=== PATIENT | male | born 1985 | race Caucasian/White ===

== ENCOUNTER 2019-11-17 17:05 | Emergency (ER) | payer MEDICAID, SELFPAY ==
[2019-11-17 17:09] VITALS: BP 135/72; PULSE 92; RESP 18; TEMP 36.4; O2SAT 96
--- NOTE | 2019-11-17 17:27 | W.ED.GENAD ---
Discharge Plan Disposition Patient Disposition: HOME Condition: Stable Discharge Details Chief Complaint: Cellulitis Clinical Impression: Cellulitis of left foot Primary Care Provider: Cheyanne Mcpherson ED Provider: Kash Davila Home Meds and New Rx's Prescriptions: New cephalexin [Keflex] 500 mg capsule 500 mg PO QID Qty: 39 RF: 0 sulfamethoxazole-trimethoprim [Bactrim DS] 800-160 mg tablet 1 tab PO BID Qty: 19 RF: 0 Continued ibuprofen 200 MG tablet 800 mg PO PRN PRNRF: 0 methadone 10 mg/mL Concentrate 80 mg PO DAILY RF: 0 Discharge Instructions Instructions: Cellulitis (ED) Additional Instructions: Please take full course of antibiotics as prescribed. Please take ibuprofen over the counter. Take 600mg by mouth every 6 hours as needed for pain. Please contact your primary care physician to arrange follow-up. Return to the ER for any worsening or new concerning symptoms. Referrals: Cheyanne Mcpherson PA [Primary Care Provider] - Medical Decision Making 33-year-old male here with cellulitis of his left foot. Patient has had recent bug bite. Border of erythema was marked. Patient to be started on Keflex and Bactrim. Initial dose provided here. Considered new onset diabetes. Fingerstick is normal. Plan for outpatient follow-up discussed with patient. Patient understands importance of timely follow-up and to return for any worsening or new concerning symptoms. Of note, tetanus is up-to-date. Patient states he has had within the last 10 years. HPI General Mode of arrival: ambulatory. Date/Time Provider Initiated Documentation: 11/17/19 17:17. Limitations to Documentation: no limitations. Information obtained by: patient. HPI Narrative: 33-year-old male presents with chief complaint of left foot inflammation. Patient notes inflammation over the past 3 days. Worse since yesterday with increased pain with ambulation. Pain now moderate. He has associated swelling and redness of the dorsal foot. He notes that he thinks he was bit by a horse fly in the area a few days ago. He does note that he stepped on a rock about a week ago and it did hurt his heel but he does not think he cut his heel. No associated fever. Otherwise feeling well with no dizziness Related Data Home Medications Medication Instructions Recorded Confirmed ibuprofen 800 mg PO PRN PRN 03/16/14 11/17/19 cephalexin [Keflex] 500 mg PO QID #39 cap 11/17/19 methadone 80 mg PO DAILY 11/17/19 11/17/19 sulfamethoxazole-trimethoprim 1 tab PO BID #19 tab 11/17/19 [Bactrim DS] Previous Rx's Medication Instructions Recorded cephalexin [Keflex] 500 mg PO QID #39 cap 11/17/19 sulfamethoxazole-trimethoprim 1 tab PO BID #19 tab 11/17/19 [Bactrim DS] Allergies Allergy/AdvReac Type Severity Reaction Status Date / Time No Known Allergies Allergy Unverified 11/17/19 17:13 General Stated Complaint: Cellulitis HILDA: 3 Review of Systems All systems reviewed & are unremarkable except as noted in HPI and below Constitutional Constitutional: Denies fever(s) Integumentary/Breasts Skin/Breast: Reports as per HPI [facility] Medical History Opioid abuse, in remission (Acute) Social History Smoking/Tobacco Use Status: Current every day Tobacco Type: cigarettes Years smoked: 26 Alcohol Intake: current Alcohol Intake frequency: holidays/special occasions only Drug use: Current Sobriety Do you feel safe at home: Yes Do you feel safe in your relationship?: Yes Exam Const General: cooperative and no acute distress HENMT Mouth: moist mucous membranes Eyes Conjunctivae: normal conjunctivae Sclera: normal sclerae Neck Neck: trachea midline and supple Resp Auscultation: clear to auscultation bilaterally, no rales, no rhonchi and no wheezes Cardio Jugular venous pressure: no JVD Rate: regular rate and not tachycardic Rhythm: regular rhythm Heart Sounds: no murmurs Pulses: dorsalis pedis present on the left 2+ Skin Rashes: rashes noted (Erythema dorsal left foot) Neuro General: patient alert, patient awake and tone normal Extrem Left lower extremity: foot Details: tenderness Location: of the dorsal foot; not of the calcaneus, warmth, edema Location: of the dorsal foot, vascular exam Details: dorsalis pedis pulse present and motor-sensory exam Details: light-touch normal; no lacerations Psych Appearance: grossly normal Mental Status: mental status grossly normal Course Vital Signs Vital signs: Vital Signs Temperature 36.4 C L 08/15/20 17:09 Pulse 92 H 11/17/19 17:09 Respiratory Rate 18 11/17/19 17:09 Blood Pressure 135/72 11/17/19 17:09 Pulse Oximetry 96 11/17/19 17:09 Temperature 36.4 C L 11/17/19 17:09 Temperature Source Skin 11/17/19 17:09 Pulse 92 H 11/17/19 17:09 Respiratory Rate 18 11/17/19 17:09 Respiratory Effort Non-Labored 11/17/19 17:14 Blood Pressure 135/72 11/17/19 17:09 Blood Pressure Position Sitting 11/17/19 17:09 Pulse Oximetry 96 11/17/19 17:09 Oxygen Delivery Method Room Air 11/17/19 17:09 Oxygen Flow Rate 0 11/17/19 17:09 Pain Level 2 11/17/19 17:09
[2019-11-17] MEDS: Cephalexin 500 MG CAP PO (17:32)
[2019-11-17] MEDS: Sulfameth/Trimeth DS TAB 1 TAB PO (17:32)
== END 2019-11-17 17:40 | disposition home or self-care (01) ==
LOC: ER 17:53
PROVIDERS: Emergency Provider Student in an Organized Health Care Education/Training Program
DX: L03.116 Cellulitis of left lower limb (principal); S90.862A Insect bite (nonvenomous), left foot, initial encounter; W57.XXXA Bitten or stung by nonvenomous insect and other nonvenomous arthropods, initial encounter
CPT/HCPCS: 99283

== ENCOUNTER 2021-09-18 20:37 | Emergency (ER) | payer MEDICAID, SELFPAY ==
[2021-09-18 20:46] VITALS: BP 138/69; PULSE 125; RESP 20; TEMP 37; O2SAT 97
--- NOTE | 2021-09-18 21:25 | W.ED.GENAD ---
Discharge Plan Disposition Patient Disposition: HOME Condition: Stable Discharge Details Clinical Impression: Insomnia, Encounter for urine test Primary Care Provider: None,None ED Provider: Maria C Aviles Home Meds and New Rx's Prescriptions: No Action clonidine 0.2 mg/24 hr Patch Weekly 0.2 mg BID bupropion HCl [Wellbutrin] 100 mg Tablet 300 mg PO DAILY Discharge Instructions Instructions: Insomnia (ED), Dermatitis (ED) Additional Instructions: At this time urine drug test was only positive for THC or marijuana. Please apply the antibiotic ointment to your legs up to 3 times daily. Follow up with primary care provider in 3-5 days. Return to ED sooner if any worsening or concerns. Increase oral fluids. Please take Tylenol or Ibuprofen with food every 4-6 hours as needed for pain and swelling. Please call the disaster recovery specialist to set up counseling and or treatment if needed. [facility] [phone] Discharge Data Discharge Date/Time-TO BE ENTERED AT DEPARTURE: 09/18/21 22:46 Medical Decision Making UDS ordered at the request of the patient, hydrocortisone cream ordered bilaterally. I did speak and evaluate patient without the mother in the room to maintain confidentiality. I did confirm that he requested a UDS. This was ordered. Medical Records Medical records reviewed: Yes I reviewed the patient's medical records. HPI General Mode of arrival: ambulatory. Date/Time Provider Initiated Documentation: 09/18/21 21:06. Limitations to Documentation: no limitations and altered mental status. Information obtained by: patient and RN notes reviewed. HPI Narrative: 35-year-old male presents to the ER with chief complaint of trouble sleeping. Mom is concerned for drug use he presents with his mother. He reports increased stress and being split from his and his children. He does endorse marijuana, heroin couple days ago and alcohol 2 beers today. He also does have a rash to his bilateral inner thighs. No significant surrounding induration, swelling. Does have a history of opioid abuse. He is not currently taking any methadone or Suboxone but he reports he has taken that in the past. He denies any suicidal ideations or homicidal ideations at this time. He does consent and agreed to having a urine drug test and is requesting this test at this time. I did offer disaster recovery specialist services. He denies any chest pain shortness of breath, nausea vomiting diarrhea, or any other associated symptoms. Related Data Home Medications Medication Instructions Recorded Confirmed bupropion HCl 100 mg tablet 300 mg PO DAILY 09/18/21 09/18/21 clonidine 0.2 mg/24 hr weekly 0.2 mg BID 09/18/21 09/18/21 transdermal patch Allergies Allergy/AdvReac Type Severity Reaction Status Date / Time No Known Allergies Allergy Unverified 09/18/21 20:53 General Stated Complaint: GenMedical HILDA: 4 Review of Systems All systems reviewed & are unremarkable except as noted in HPI and below Constitutional Constitutional: Reports as per HPI and Reports difficulty sleeping Cardiovascular Cardiovascular: Denies chest pain and Denies dyspnea Respiratory Respiratory: Denies dyspnea Gastrointestinal Gastrointestinal: Denies abdominal pain, Denies diarrhea, Denies nausea and Denies vomiting Integumentary/Breasts Skin/Breast: Reports erythema and Reports rash (Bilateral inner thighs) Neurologic Neurologic: Reports behavioral changes Psychiatric Psychiatric: Reports anxiety, Reports behavioral changes, Denies homicidal ideation and Denies suicidal ideation PFSH All Active Problems (Updated 09/18/21 @ 22:29 by Maria C Aviles NP) Insomnia (Acute) Encounter for urine test (Acute) Medical History (Updated 09/18/21 @ 22:29 by Maria C Aviles NP) Opioid abuse, in remission Social History Smoking/Tobacco Use Status: Current every day Tobacco Type: cigarettes Years smoked: 26 Smoking risk assessment performed?: Yes Alcohol Intake: current Alcohol Intake frequency: holidays/special occasions only Drug use: Current Sobriety Do you feel safe at home: Yes Do you feel safe in your relationship?: Yes Exam Narrative Exam Narrative: Constitutional: Alert and oriented x3. Appears stated age. Normal body habitus. Patient does not appear to be under the influence. Head: Normocephalic, no trauma. Eyes: Pupils 2 mm bilaterally, brisk reactive. Red reflex noted, EOM's intact. Eyelids symmetrical without lesions, discharge, or swelling. . Chest: Patient is tachycardic upon arrival rate of 125, no murmurs rubs or gallops, Normal S1, S2, distal pulses intact. Resp: Lungs clear to auscultation bilaterally, no wheezes, rales, or rhonchi. Abdomen: Soft, non-distended, Normoactive bowel sounds all 4 quads. Musculoskeletal: Normal gait, 5/5 strength to all four extremities. Skin: Erythemic, rash noted to bilateral inner thighs patient reports that he has pimples no signs of cellulitis or surrounding induration capillary refill less than 2 sec. Neurologic: Cranial nerves II-XII intact. Alert and oriented x 3. Motor: No deficits noted. Hematologic/Lymphatic: No ecchymosis, no lymphadenopathy. Psych Appearance: well kempt Speech and Movement: pressured speech, restless and slurred speech Affect: euphoric affect Attitude: cooperative Thought Process: normal Thought Content: no delusions, no hallucinations, no homicidality and suicidality Insight: insight good Judgment: judgment good Course Vital Signs Vital signs: Vital Signs Temperature 37.0 C 09/18/21 20:46 Pulse 125 H 09/18/21 20:46 Respiratory Rate 09/18/21 20:46 Blood Pressure 138/69 09/18/21 20:46 Pulse Oximetry 97 09/18/21 20:46 Temperature 37.0 C 09/18/21 20:46 Pulse 125 H 09/18/21 20:46 Respiratory Rate 20 09/18/21 20:46 Blood Pressure 138/69 09/18/21 20:46 Blood Pressure Position Sitting 09/18/21 20:46 Pulse Oximetry 97 09/18/21 20:46 Oxygen Delivery Method Room Air 09/18/21 20:46 Oxygen Flow Rate 0 09/18/21 20:46 Pain Level 0 09/18/21 20:46
[2021-09-18 22:04] LABS: *AMPHETAMINES SCREEN URINE Negative (Negative); *BARBITURATES SCREEN URINE Negative (Negative); *BENZODIAZEPINES SCREEN URINE Negative (Negative); Cannabinoids THC Positive (Negative); Cocaine Screen,Urine Negative (Negative); METHADONE URINE SCREEN Negative (Negative); OPIATES URINE SCREEN Negative (Negative); Tricyclic Antidepressants Negative (Negative)
[2021-09-18] MEDS: Hydrocortisone 1% CR 30 GM TUBE TP (22:04)
== END 2021-09-18 22:46 | disposition home or self-care (01) ==
PROVIDERS: Emergency Provider Registered Nurse Emergency
DX: G47.00 Insomnia, unspecified (principal); R46.89 Other symptoms and signs involving appearance and behavior; R21 Rash and other nonspecific skin eruption
CPT/HCPCS: 80307; 99282